=== PATIENT | male | born 1960 | race African-American/Black ===

== ENCOUNTER 2020-11-02 11:40 | Emergency (ER) | payer OTHER ==
[2020-11-02 11:57] VITALS: BP 171/74; PULSE 71; TEMP 97.5; BMI 25.2
[2020-11-02] MEDS ORDERED: BAMLANIVIMAB 700 MG in SODIUM CHLORIDE 180 ML IVPB ONE (15:00)
== END 2020-11-02 18:15 | disposition home or self-care (01) ==
LOC: JER 11:40
DX: U07.1 COVID-19 (principal)
CPT/HCPCS: 96374; 99284-25; M0239; Q0239

== ENCOUNTER 2020-11-05 14:52 | Observation (INO) | payer OTHER ==
[2020-11-05 15:13] VITALS: BP 158/75; PULSE 67; TEMP 99.1; BMI 23.7
[2020-11-05 16:43] LABS: BASO % 0.6 % (0-2.0); EOS % 0.2 % (0-4.5); HEMOGLOBIN 14.5 GM/dL (11.7-16.9); LYMPH % 17.3 % (8-40); MCH 28.6 pg (25.7-33.7); MEAN CELL VOLUME 86.6 fl (80-96); MEAN PLT VOLUME 8.9 fl (7.5-11.1); MONO % 6.2 % (3.8-10.2); NEUT % 75.7 % (42.8-82.8); PLATELET COUNT 293 K/MM3 (134-434); RBC 5.08 M/mm3 (4.00-5.60); RDW 13.3 % (11.9-15.9); WHITE BLOOD COUNT 4.1 K/mm3 (4.0-10.0)
[2020-11-05 16:52] LABS: BLOOD UREA NITROGEN 12.3 mg/dL (7-18); CALCIUM 9.1 mg/dL (8.5-10.1)
[2020-11-05 16:56] LABS: CREATININE 1.3 mg/dL (0.55-1.3)
[2020-11-05 16:57] LABS: BILIRUBIN,TOTAL 0.6 mg/dL (0.2-1); TOT PROT 7.2 g/dl (6.4-8.2)
== END 2020-11-05 19:05 | disposition left against medical advice (07) ==
LOC: JER 14:52 → JERBED 18:10
PROVIDERS: ADMIT Internal Medicine; ATTEND Internal Medicine
DX: U07.1 COVID-19 (principal); R94.31 Abnormal electrocardiogram [ECG] [EKG]; I25.10 Atherosclerotic heart disease of native coronary artery without angina pectoris; I10 Essential (primary) hypertension; Z53.29 Procedure and treatment not carried out because of patient's decision for other reasons
CPT/HCPCS: 36415; 71046-TC-FY; 80053; 82550; 84484; 85025; 93005; 93010; 99285-25; G0378

== ENCOUNTER 2022-09-03 07:50 | Emergency (ER) | payer OTHER ==
[2022-09-03 07:57] VITALS: BP 127/60; PULSE 58; RESP 18; TEMP 97.9; BMI 24.7
[2022-09-03] MEDS ORDERED: DOXYCYCLINE HYCLATE 100 MG CAPSULE PO ONE ×3 (08:16→08:55)
[2022-09-03] MEDS ORDERED: LIDOCAINE HCL 2% JELLY 10 ML CARTRIDGE UR ONE (08:29)
[2022-09-03] MEDS ORDERED: LIDOCAINE VISCOUS 2% ORAL/TOP 15 ML UNIT-DOSE CUP ONE (08:32)
[2022-09-03] MEDS ORDERED: LIDOCAINE HCL 2% JELLY 11 ML TP ONE (08:57)
== END 2022-09-03 10:01 | disposition home or self-care (01) ==
LOC: JER 07:50
DX: S20.96XA Insect bite (nonvenomous) of unspecified parts of thorax, initial encounter (principal)
CPT/HCPCS: 99283-25